=== PATIENT | male | born 1950 | race African-American/Black ===

== ENCOUNTER 2018-04-01 11:12 | Inpatient (IN) | payer OTHER ==
[~2018-04-01] VITALS: Ht 182.9 cm; Wt 100.2 kg
[2018-04-01] VITALS (11 sets, daily range): BP systolic 103–178; BP diastolic 63–101
[2018-04-01 12:34] LABS: BASOPHIL % 0.1 % (0-2); PLATELET COUNT 197 x10^3mcL (130-400); RED CELL DISTRIBUTION WIDTH 13.9 % (11.5-14.5)
[2018-04-01] MEDS ORDERED: LOTENSIN40 MG (12:42)
[2018-04-01] MEDS ORDERED: HYDROCHLOROTHIA50 MG PO (12:42)
[2018-04-01] MEDS ORDERED: NORCO1 TA2 PO (12:43)
[2018-04-01 12:59] LABS: CALCIUM 8.2 mg/dL (8.5-10.1); CARBON DIOXIDE 24.1 mmol/L (21-32); CHLORIDE SERUM 107 mmol/L (98-107); CREATININE SERUM 0.8 mg/dL (0.7-1.3); GFR1 > 60 mL/min; GLUCOSE SERUM 125 mg/dL (74-106); POTASSIUM SERUM 3.4 mmol/L (3.5-5.1); SODIUM SERUM 141 mmol/L (136-145)
[2018-04-01 13:03] LABS: ALKALINE PHOSPHATASE 83 U/L (46-116); ALT/SGPT 19 U/L (16-63); AST/SGOT 15 U/L (15-37); BILIRUBIN TOTAL 0.94 mg/dL (0.20-1.00); TOTAL PROTEIN, SERUM 6.3 g/dL (6.4-8.2)
[2018-04-01 13:04] LABS: ALBUMIN 3.1 g/dL (3.4-5.0)
[2018-04-01 13:20] LABS: UA SPECIFIC GRAVITY 1.015 (1.005-1.035); microscopic required? YES; urine erythrocyte TRACE (NEGATIVE)
[2018-04-01 13:26] LABS: MAGNESIUM 1.8 mg/dL (1.8-2.4); PHOSPHOROUS 3.8 mg/dL (2.5-4.9)
[2018-04-01 13:36] LABS: FREE T4 1.04 ng/dL (0.76-1.46)
[2018-04-01 13:37] LABS: FREE THYROXINE INDEX 1.7 ug/dL (1.4-4.5); T3 TOTAL 0.79 ng/mL; T4(THYROXINE) 4.6 ug/dL (4.7-13.3)
[2018-04-01 14:57] LABS: AMPHETAMINE QUAL UR NONE DETECTED (See below)
[2018-04-02] VITALS (12 sets, daily range): BP systolic 91–135; BP diastolic 54–78; Ht 182.9 cm; Wt 100.2 kg
[2018-04-02 05:08] LABS: BASOPHIL % 0.9 % (0-2); PLATELET COUNT 182 x10^3mcL (130-400); RED CELL DISTRIBUTION WIDTH 14.2 % (11.5-14.5)
[2018-04-02 05:12] LABS: CALCIUM 8.8 mg/dL (8.5-10.1); CARBON DIOXIDE 28.4 mmol/L (21-32); CHLORIDE SERUM 108 mmol/L (98-107); CREATININE SERUM 0.9 mg/dL (0.7-1.3); GFR1 > 60 mL/min; GLUCOSE SERUM 117 mg/dL (74-106); SODIUM SERUM 143 mmol/L (136-145)
[2018-04-02 05:16] LABS: PHOSPHOROUS 3.9 mg/dL (2.5-4.9)
[2018-04-03 05:29] VITALS: BP 141/73
[2018-04-03 07:10] LABS: CALCIUM 8.7 mg/dL (8.5-10.1); CARBON DIOXIDE 27.7 mmol/L (21-32); CHLORIDE SERUM 104 mmol/L (98-107); CREATININE SERUM 0.7 mg/dL (0.7-1.3); GFR1 > 60 mL/min; GLUCOSE SERUM 94 mg/dL (74-106); POTASSIUM SERUM 3.7 mmol/L (3.5-5.1); SODIUM SERUM 139 mmol/L (136-145)
[2018-04-03 08:10] LABS: BASOPHIL % 0.3 % (0-2); PLATELET COUNT 189 x10^3mcL (130-400); RED CELL DISTRIBUTION WIDTH 14.5 % (11.5-14.5)
[2018-04-03 08:15] VITALS: BP 116/70
[2018-04-03 10:30] VITALS: BP 116/70
== END 2018-04-03 11:47 | disposition home or self-care (01) | DRG 91 ==
LOC: ED 11:12 → DU 11:58 → IC 11:58 → DU 04-02 18:15
PROVIDERS: Anesthesiology Pain Medicine; Emergency Medicine; Internal Medicine
PROC: 0BH17EZ Insertion of Endotracheal Airway into Trachea, Via Natural or Artificial Opening (ICD-10-PCS; 2018-04-01)
PROC: 5A1935Z Respiratory Ventilation, Less than 24 Consecutive Hours (ICD-10-PCS; principal; 2018-04-01 14:30)
PROC: 0JW Subcutaneous Tissue and Fascia, Revision (ICD-10-PCS; 2018-04-02)
DX: T85.635A Leakage of other nervous system device, implant or graft, initial encounter (principal); J96.00 Acute respiratory failure, unspecified whether with hypoxia or hypercapnia; G92 Toxic encephalopathy; T40.2X1A Poisoning by other opioids, accidental (unintentional), initial encounter; M54.89 Other dorsalgia; G89.29 Other chronic pain; E87.6 Hypokalemia; J44.9 Chronic obstructive pulmonary disease, unspecified; I10 Essential (primary) hypertension; F17.210 Nicotine dependence, cigarettes, uncomplicated; Z45.1 Encounter for adjustment and management of infusion pump; Z68.30 Body mass index [BMI] 30.0-30.9, adult
CPT/HCPCS: 36600; 84439; 87107; 97110-GP; 97116-GP; 97535-GP; A4628; G0480; J0690; J1644; J2001; J2250; J2310; J2704; J3010; J3490; J7030; J7120; J7620; Q0092

== ENCOUNTER 2018-06-26 07:33 | Inpatient (IN) | payer OTHER ==
[2018-06-26] VITALS (10 sets, daily range): BP systolic 71–126; BP diastolic 44–76; Ht 185.4 cm; Wt 104.3 kg
[~2018-06-26] VITALS: Ht 185.4 cm; Wt 104.3 kg
[~2018-06-26 07:33] MED LIST: HYDROCHLOROTHIA50 MG PO; LOTENSIN40 MG; NORCO1 TA2 PO
[2018-06-26 08:46] LABS: BASOPHIL % 0.7 % (0-2); RED CELL DISTRIBUTION WIDTH 13.9 % (11.5-14.5)
[2018-06-26 08:53] LABS: PLATELET COUNT 103 x10^3mcL (130-400)
[2018-06-26 08:55] LABS: CALCIUM 7.9 mg/dL (8.5-10.1); CARBON DIOXIDE 18.2 mmol/L (21-32); CHLORIDE SERUM 103 mmol/L (98-107); CREATININE SERUM 1.5 mg/dL (0.7-1.3); GFR1 50 mL/min; GLUCOSE SERUM 393 mg/dL (74-106); POTASSIUM SERUM 3.3 mmol/L (3.5-5.1); SODIUM SERUM 138 mmol/L (136-145)
[2018-06-26 09:06] LABS: ALKALINE PHOSPHATASE 64 U/L (46-116); ALT/SGPT 93 U/L (16-63); AST/SGOT 136 U/L (15-37); BILIRUBIN TOTAL 0.36 mg/dL (0.20-1.00); LIPASE 203 IU/L (73-393); MAGNESIUM 3.4 mg/dL (1.8-2.4)
[2018-06-26 09:07] LABS: ALBUMIN 2.3 g/dL (3.4-5.0); AMYLASE 116 U/L (25-115); CHOLESTEROL 131 mg/dL (<200); HDL CHOLESTEROL 63 mg/dL (40-60)
[2018-06-26 09:49] LABS: microscopic required? YES; urine erythrocyte TRACE (NEGATIVE)
[2018-06-26 10:05] LABS: AMPHETAMINE QUAL UR NONE DETECTED (See below)
[2018-06-26 12:36] LABS: CHOLESTEROL/HDL RATIO 2.2
== END 2018-06-26 20:15 | disposition short-term general hospital (02) | DRG 871 ==
LOC: ED 07:33 → EDBD 07:33 → ED 07:33 → IC 09:54
PROVIDERS: Emergency Medicine; Internal Medicine
PROC: 5A1935Z Respiratory Ventilation, Less than 24 Consecutive Hours (ICD-10-PCS; principal; 2018-06-26)
PROC: 0BH17EZ Insertion of Endotracheal Airway into Trachea, Via Natural or Artificial Opening (ICD-10-PCS; 2018-06-26)
DX: A41.9 Sepsis, unspecified organism (principal); G93.41 Metabolic encephalopathy; J96.01 Acute respiratory failure with hypoxia; E87.2 Acidosis; I25.10 Atherosclerotic heart disease of native coronary artery without angina pectoris; I49.9 Cardiac arrhythmia, unspecified; G89.4 Chronic pain syndrome; E11.9 Type 2 diabetes mellitus without complications; Z79.4 Long term (current) use of insulin; Z68.33 Body mass index [BMI] 33.0-33.9, adult; F17.210 Nicotine dependence, cigarettes, uncomplicated
CPT/HCPCS: 31500; 36600; 82962; 83880; G0480; J0282; J1265; J1644; J1650; J2060; J2250; J2370; J2543; J2690; J2704; J3010; J3480; J3490; J7620; Q0092